=== PATIENT | male | born 1965 | race Two or more races ===

== ENCOUNTER → 2023-07-07 | Day surgery (SDC) | payer OTHER ==
[2023-07-02 10:01] LABS: PH,URINE 6.5 (5.0-8.0); URINE APPEARANCE Clear; URINE BILIRRUBIN Negative (NEGATIVE); URINE BLOOD Negative; URINE COLOR Yellow; URINE GLUCOSE Negative (NEGATIVE); URINE LEUKOCYTE Negative; URINE NITRATE Negative; URINE PROTEIN Negative (NEGATIVE)
[2023-07-02 10:24] LABS: HEMOGLOBIN 15.6 g/dL (13-16.00); MEAN CELL VOLUME 95.9 fL (80.0-100.00); MEAN CORPUSCULAR HEMOGLOBIN 33.2 pg (27.00-32.0); MEAN CORPUSCULAR HGB CONC 34.7 g/dl (32.0-36.0); PLATELET COUNT 199 K/uL (150-450); RED CELL DISTRIBUTION WIDTH 13.2 % (11.5-14.5)
[2023-07-02 10:25] LABS: URINE BACTERIA 1.2 uL (0.0-1933); URINE EPITHELIAL CELLS 0.7 uL (0.0-38.8); URINE WBC 1.5 uL (0.0-23.2)
[2023-07-02 10:49] LABS: INR 1.04; PARTIAL THROMBOPLASTIN TIME 29.8 SECONDS (22.0-34.0); PROTHROMBIN TIME 10.9 SECONDS (9.0-11.5)
[2023-07-02 10:56] LABS: ALBUMIN 4.1 gm/dL (3.4-5.0); BILIRUBIN TOTAL 0.66 mg/dL (0.3-1.2); CALCIUM 9.1 mg/dL (8.5-10.1); CREATININE SERUM 1.02 mg/dL (0.70-1.30); GFR 75.28; POTASSIUM 4.92 mEq/L (3.5-5.1); TOTAL PROTEIN 7.1 gm/dL (6.4-8.2)
[~2023-07-07] MED LIST: AMBIEN CR12.5 MG PO; PREVACID15 M1 PO; VITAMIN C500 M6 PO; ZESTRIL5 MG PO
== END | disposition home or self-care (01) ==
LOC: ADM 07-02 08:45 → CIR.AMB 05:17
PROVIDERS: ATTEND Surgery
DX: K40.20 Bilateral inguinal hernia, without obstruction or gangrene, not specified as recurrent (principal); Z88.0 Allergy status to penicillin; Z88.6 Allergy status to analgesic agent; Z20.822 Contact with and (suspected) exposure to COVID-19; I10 Essential (primary) hypertension
CPT/HCPCS: 49650; C1781

== ENCOUNTER 2023-07-16 10:00 | Emergency (ER) | payer OTHER ==
[~2023-07-16] VITALS: Ht 167.6 cm; Wt 78.0 kg
[2023-07-16] MEDS ORDERED: SALSALATE750 MG PO (11:07)
[2023-07-16 13:00] LABS: HEMATOCRIT 39.8 % (39.0-48.0); HEMOGLOBIN 14.2 g/dL (13-16.00); MEAN CELL VOLUME 94.4 fL (80.0-100.00); MEAN CORPUSCULAR HEMOGLOBIN 33.6 pg (27.00-32.0); MEAN CORPUSCULAR HGB CONC 35.6 g/dl (32.0-36.0); PLATELET COUNT 226 K/uL (150-450); RED BLOOD COUNT 4.21 M/uL (4.00-6.00); RED CELL DISTRIBUTION WIDTH 12.7 % (11.5-14.5)
[2023-07-16 13:04] LABS: URINE APPEARANCE Clear; URINE BILIRRUBIN Negative (NEGATIVE); URINE BLOOD Moderate; URINE COLOR Yellow; URINE GLUCOSE Negative (NEGATIVE); URINE LEUKOCYTE Negative; URINE NITRATE Negative; URINE PROTEIN Negative (NEGATIVE); URINE UROBILINOGEN 0.2 E.U./dl
[2023-07-16 13:07] LABS: URINE RBC 107.3 uL (0.0-20.8)
[2023-07-16 13:21] LABS: URINE EPITHELIAL CELLS 0.6 uL (0.0-38.8); URINE WBC 1.5 uL (0.0-23.2)
[2023-07-16 13:38] LABS: CALCIUM 9.1 mg/dL (8.5-10.1); CREATININE SERUM 0.94 mg/dL (0.70-1.30); GFR 82.72; POTASSIUM 4.98 mEq/L (3.5-5.1)
== END 2023-07-16 14:47 | disposition home or self-care (01) ==
LOC: ER 10:00
PROVIDERS: General Practice
DX: R31.9 Hematuria, unspecified (principal)

== ENCOUNTER 2023-07-17 09:40 | Inpatient (IN) | payer OTHER ==
[~2023-07-17] VITALS: Ht 152.4 cm; Wt 78.0 kg
[~2023-07-17 09:40] MED LIST changes: +SALSALATE750 MG PO
[2023-07-17 11:35] LABS: HEMATOCRIT 41.3 % (39.0-48.0); HEMOGLOBIN 14.5 g/dL (13-16.00); MEAN CELL VOLUME 94.8 fL (80.0-100.00); MEAN CORPUSCULAR HEMOGLOBIN 33.3 pg (27.00-32.0); MEAN CORPUSCULAR HGB CONC 35.1 g/dl (32.0-36.0); PLATELET COUNT 243 K/uL (150-450); RED BLOOD COUNT 4.36 M/uL (4.00-6.00); RED CELL DISTRIBUTION WIDTH 12.5 % (11.5-14.5)
[2023-07-17 12:08] LABS: CALCIUM 8.9 mg/dL (8.5-10.1); CREATININE SERUM 0.87 mg/dL (0.70-1.30); GFR 90.44; POTASSIUM 3.73 mEq/L (3.5-5.1)
[2023-07-17 13:55] LABS: URINE BILIRRUBIN NEGATIVE (NEGATIVE); URINE BLOOD LARGE; URINE LEUKOCYTE MODERATE; URINE NITRATE POSITIVE
[2023-07-17 13:56] LABS: URINE GLUCOSE 100 MG/DL (NEGATIVE); URINE PROTEIN >=300 (NEGATIVE)
[2023-07-17 13:57] LABS: URINE APPEARANCE BLOODY; URINE COLOR RED
[2023-07-17 14:27] LABS: URINE RBC LOADED /HPF
[2023-07-17 14:28] LABS: URINE EPITHELIAL CELLS NONE SEEN /HPF
[2023-07-17 14:29] LABS: URINE BACTERIA NONE SEEN; URINE CRYSTALS NEGATIVE /HPF; URINE MUCUS NEGATIVE
[2023-07-18 05:39] LABS: HEMOGLOBIN 11.4 g/dL (13-16.00); MEAN CELL VOLUME 96.4 fL (80.0-100.00); MEAN CORPUSCULAR HEMOGLOBIN 34.3 pg (27.00-32.0); MEAN CORPUSCULAR HGB CONC 35.6 g/dl (32.0-36.0); PLATELET COUNT 200 K/uL (150-450); RED BLOOD COUNT 3.32 M/uL (4.00-6.00); RED CELL DISTRIBUTION WIDTH 12.6 % (11.5-14.5)
[2023-07-18 05:51] LABS: INR 1.12; PARTIAL THROMBOPLASTIN TIME 27.9 SECONDS (22.0-34.0)
[2023-07-18 06:01] LABS: CALCIUM 8.5 mg/dL (8.5-10.1); CREATININE SERUM 0.9 mg/dL (0.70-1.30); GFR 86.98; POTASSIUM 4.62 mEq/L (3.5-5.1)
[2023-07-18 07:25] LABS: PROTHROMBIN TIME 11.7 SECONDS (9.0-11.5)
[2023-07-18 07:35] LABS: URINE APPEARANCE Turbid; URINE BILIRRUBIN Small (NEGATIVE); URINE BLOOD Large; URINE COLOR Red; URINE GLUCOSE Negative (NEGATIVE); URINE LEUKOCYTE Moderate; URINE NITRATE Positive; URINE UROBILINOGEN 0.2 E.U./dl
[2023-07-18 07:41] LABS: URINE BACTERIA 280.9 uL (0.0-1933); URINE EPITHELIAL CELLS 6.8 uL (0.0-38.8)
[2023-07-18 07:56] LABS: URINE PROTEIN 100 (NEGATIVE); URINE RBC > 10558.9 uL (0.0-20.8)
[2023-07-19 08:36] LABS: ALBUMIN 2.8 gm/dL (3.4-5.0); BILIRUBIN TOTAL 0.44 mg/dL (0.3-1.2); CALCIUM 8.4 mg/dL (8.5-10.1); CREATININE SERUM 0.92 mg/dL (0.70-1.30); GFR 84.8; GLOBULINA 2.5 G/DL (2.4-3.5); POTASSIUM 3.54 mEq/L (3.5-5.1); TOTAL PROTEIN 5.3 gm/dL (6.4-8.2)
[2023-07-19 08:42] LABS: HEMATOCRIT 32.1 % (39.0-48.0); HEMOGLOBIN 11.3 g/dL (13-16.00); MEAN CELL VOLUME 95.1 fL (80.0-100.00); MEAN CORPUSCULAR HEMOGLOBIN 33.4 pg (27.00-32.0); MEAN CORPUSCULAR HGB CONC 35.1 g/dl (32.0-36.0); PLATELET COUNT 193 K/uL (150-450); RED BLOOD COUNT 3.38 M/uL (4.00-6.00); RED CELL DISTRIBUTION WIDTH 12.5 % (11.5-14.5)
[2023-07-20] MEDS ORDERED: AMBIEN CR12.5 MG PO (12:08)
[2023-07-20] MEDS ORDERED: COLACE100 MG PO (12:08)
== END 2023-07-20 12:20 | disposition home or self-care (01) | DRG 696 ==
LOC: ER 09:40 → MEDI 17:14
PROVIDERS: Emergency Medicine; Internal Medicine; ADMIT Internal Medicine; ATTEND Internal Medicine
PROC: BW21ZZZ Computerized Tomography (CT Scan) of Abdomen and Pelvis (ICD-10-PCS; principal; 2023-07-17)
PROC: BT4JZZZ Ultrasonography of Kidneys and Bladder (ICD-10-PCS; 2023-07-17)
PROC: BW21YZZ Computerized Tomography (CT Scan) of Abdomen and Pelvis using Other Contrast (ICD-10-PCS; 2023-07-18)
DX: R31.9 Hematuria, unspecified (principal); R33.9 Retention of urine, unspecified; I10 Essential (primary) hypertension; N32.89 Other specified disorders of bladder

== ENCOUNTER 2023-10-02 08:59 | Emergency (ER) | payer OTHER ==
[~2023-10-02] VITALS: Ht 167.6 cm; Wt 79.4 kg
[~2023-10-02 08:59] MED LIST changes: +COLACE100 MG PO
[2023-10-02] MEDS ORDERED: METAXALONE800 MG PO (10:36)
[2023-10-02] MEDS ORDERED: TYLENOL ARTHRI650 MG PO (10:36)
== END 2023-10-02 10:56 | disposition home or self-care (01) ==
LOC: ER 09:01
DX: S13.4XXA Sprain of ligaments of cervical spine, initial encounter (principal); V49.9XXA Car occupant (driver) (passenger) injured in unspecified traffic accident, initial encounter; Y93.89 Activity, other specified; Y92.413 State road as the place of occurrence of the external cause; Z88.0 Allergy status to penicillin; Z88.6 Allergy status to analgesic agent

== ENCOUNTER 2024-06-02 07:35 | Outpatient (CLI) | payer OTHER ==
[~2024-06-02 07:35] MED LIST changes: +METAXALONE800 MG PO; +TYLENOL ARTHRI650 MG PO
== END 2024-06-02 07:47 | disposition home or self-care (01) ==
LOC: TOM 07:35
PROVIDERS: ATTEND Urology
DX: N41.0 Acute prostatitis (principal)